=== PATIENT | female | born 1985 | race Caucasian/White ===

== ENCOUNTER 2020-04-04 04:26 | Outpatient (CLI) | payer MEDICAID ==
[2020-04-04 05:06] LABS: APPEARANCE,URINE CLEAR; BILIRUBIN,URINE NEGATIVE (NEGATIVE); COLOR,URINE YELLOW; GLUCOSE, URINE NEGATIVE (NEGATIVE); KETONES,URINE NEGATIVE (NEGATIVE); LEUKOCYTE ESTERASE,URINE NEGATIVE (NEGATIVE); NITRITE,URINE NEGATIVE (NEGATIVE); PROTEIN,URINE NEGATIVE (NEGATIVE); UROBILINOGEN,URINE NEGATIVE mg/dL (<2.0)
[2020-04-04 05:20] LABS: URINE AMPHETAMINES SCREEN NEGATIVE; URINE BARBITURATES SCREEN NEGATIVE; URINE BENZODIAZEPINES SCREEN NEGATIVE; URINE COCAINE SCREEN NEGATIVE; URINE MARIJUANA (THC) SCREEN NEGATIVE; URINE METHADONE SCREEN NEGATIVE; URINE PHENCYCLIDINE SCREEN NEGATIVE
== END 2020-04-04 05:35 | disposition home or self-care (01) ==
LOC: LC 04:26
PROVIDERS: ATTEND Obstetrics & Gynecology
DX: O46.92 Antepartum hemorrhage, unspecified, second trimester (principal); O26.892 Other specified pregnancy related conditions, second trimester; R10.2 Pelvic and perineal pain; Z3A.26 26 weeks gestation of pregnancy
CPT/HCPCS: 80307; 81001

== ENCOUNTER 2020-05-27 20:37 | Outpatient (CLI) | payer MEDICAID ==
[2020-05-27 21:11] LABS: APPEARANCE,URINE CLEAR; BILIRUBIN,URINE NEGATIVE (NEGATIVE); COLOR,URINE YELLOW; GLUCOSE, URINE NEGATIVE (NEGATIVE); KETONES,URINE NEGATIVE (NEGATIVE); LEUKOCYTE ESTERASE,URINE NEGATIVE (NEGATIVE); NITRITE,URINE NEGATIVE (NEGATIVE); PROTEIN,URINE NEGATIVE (NEGATIVE); URINE SPECIFIC GRAVITY 1.008; UROBILINOGEN,URINE NEGATIVE mg/dL (<2.0)
[2020-05-27] MEDS ORDERED: NORMAL SALINE 1000 ML 1,000 ML IV PRN (21:20)
[2020-05-27] MEDS ORDERED: ONDANSETRON HCL INJ/PF 4 MG/2 ML SDV IV ONE (21:29)
[2020-05-27 21:32] LABS: URINE AMPHETAMINES SCREEN NEGATIVE; URINE BARBITURATES SCREEN NEGATIVE; URINE BENZODIAZEPINES SCREEN NEGATIVE; URINE COCAINE SCREEN NEGATIVE; URINE MARIJUANA (THC) SCREEN NEGATIVE; URINE METHADONE SCREEN NEGATIVE; URINE PHENCYCLIDINE SCREEN NEGATIVE
[2020-05-27] MEDS ORDERED: ONDANSETRON HCL INJ/PF 4 MG/2 ML SDV ONE (21:32)
[2020-05-27 22:16] LABS: HEMATOCRIT 31.7 % (36.0-47.0); HEMOGLOBIN 10.5 g/dL (12.0-15.5); MEAN CORPUSCULAR HEMOGLOBIN 28.3 pg (27.0-33.4); MEAN CORPUSCULAR HGB CONC 33.1 g/dL (32.0-36.0); MEAN CORPUSCULAR VOLUME 86 fl (80-97); PLATELET COUNT 230 10^3/uL (150-450); RED BLOOD COUNT 3.71 10^6/uL (3.72-5.28); RED CELL DISTRIBUTION WIDTH 14.1 % (11.5-14.0); WHITE BLOOD COUNT 12.4 10^3/uL (4.0-10.5)
[2020-05-27 22:34] LABS: ALBUMIN 3.1 g/dL (3.5-5.0); ALKALINE PHOSPHATASE 137 U/L (38-126); AMYLASE 46 U/L (30-110); ANION GAP 8 (5-19); ASPARTATE AMINO TRANSFERASE 19 U/L (14-36); BILIRUBIN,TOTAL 0.3 mg/dL (0.2-1.3); BLOOD UREA NITROGEN 2 mg/dL (7-20); CALCIUM 8.8 mg/dL (8.4-10.2); CARBON DIOXIDE 19 mmol/L (22-30); CHLORIDE 107 mmol/L (98-107); GLUCOSE 112 mg/dL (75-110); POTASSIUM 3.3 mmol/L (3.6-5.0); TOTAL PROTEIN 6.3 g/dL (6.3-8.2)
[2020-05-27 22:42] LABS: ABSOLUTE LYMPHOCYTES# (MANUAL) 2.6 10^3/uL (0.5-4.7); ABSOLUTE MONOCYTES # (MANUAL) 0.9 10^3/uL (0.1-1.4); ANISOCYTOSIS SLIGHT; BASOPHILS % (MANUAL) 0 % (0-2); EOSINOPHILS % (MANUAL) 1 % (0-6); LYMPHOCYTES % (MANUAL) 21 % (13-45); METAMYELOCYTES % (MANUAL) 1 % (0-1); MONOCYTES % (MANUAL) 7 % (3-13); PLATELET COMMENT ADEQUATE; POLYCHROMASIA SLIGHT; SEGMENTED NEUTROPHILS % (MAN) 70 % (42-78); TOTAL CELLS COUNTED 100
[2020-05-27] MEDS ORDERED: HYDROXYZINE PAMOATE 50 MG CAPSULE ONE (23:03)
[2020-05-27] MEDS ORDERED: PANTOPRAZOLE SODIUM 40 MG TABLET.DR PO ONE (23:03)
--- NOTE | 2020-05-27 23:28 | Non Stress Test Report ---
Non Stress Test Datetime Report Generated by CPN: 05/27/2020 23:28 DEMOGRAPHIC Test Number: 1 EGA NST: 33.6 INDICATION Indication for Study (NST) Other: LC URINE RESULTS Urine Protein, NST: Negative Urine Ketones - NST: Negative Urine Glucose - NST: Negative Urine Blood - NST: Negative MONITORING Time on Monitor: 05/27/2020 23:00 Time off Monitor: 05/27/2020 23:26 NST Duration: 26 NST INTERVENTIONS NST Interventions: PO Hydration; IV Fluids NST Interventions Other: prolonged accels present in earlier portion of tracing, provider aware Physician Notified NST: Dr. Griffith BABY A: [id number] BABY A Movement : Present Contraction Frequency : none FHR Baseline : 150 Accelerations : 15X15 Decelerations : None Variability : Moderate 6-25bpm NST Review: Meets Criteria for Reactive NST NST Review and Verified By : Ousmane Sim RN NST Results: Reactive NST REPORT Report Trigger: Send Report
== END 2020-05-27 23:42 | disposition home or self-care (01) ==
LOC: LC 20:37
PROVIDERS: ATTEND Obstetrics & Gynecology
DX: O36.8330 Maternal care for abnormalities of the fetal heart rate or rhythm, third trimester, not applicable or unspecified (principal); O24.410 Gestational diabetes mellitus in pregnancy, diet controlled; O21.2 Late vomiting of pregnancy; Z3A.33 33 weeks gestation of pregnancy
CPT/HCPCS: 59025; 94760; 36415; 82962; 82150; 83690; 85025; 80053; 81001; 80307; J3490 ×2; J2405

== ENCOUNTER 2020-06-30 11:46 | Outpatient (CLI) | payer MEDICAID ==
[2020-06-30 12:27] LABS: APPEARANCE,URINE SLIGHTLY-CLOUDY; BILIRUBIN,URINE NEGATIVE (NEGATIVE); COLOR,URINE YELLOW; GLUCOSE, URINE NEGATIVE (NEGATIVE); KETONES,URINE NEGATIVE (NEGATIVE); LEUKOCYTE ESTERASE,URINE NEGATIVE (NEGATIVE); NITRITE,URINE NEGATIVE (NEGATIVE); PROTEIN,URINE 30 mg/dL (NEGATIVE); URINE SPECIFIC GRAVITY 1.012; UROBILINOGEN,URINE NEGATIVE mg/dL (<2.0)
--- NOTE | 2020-06-30 12:29 | Non Stress Test Report ---
Non Stress Test Datetime Report Generated by CPN: 06/30/2020 12:29 DEMOGRAPHIC Test Number: 1 EGA NST: 38.5 INDICATION Indication for Study (NST) Other: provider orders VITAL SIGNS Temperature - NST: 98.6 Pulse - NST: 102 RESP - NST: 17 NBPSYS NST: 113 NBPDIA NST: 58 MONITORING Monitor Explained: Monitor Explained; Test Explained; Patient Verbalized Understanding Time on Monitor: 06/30/2020 12:00 Time off Monitor: 06/30/2020 12:21 NST Duration: 21 NST INTERVENTIONS NST Interventions: PO Hydration Physician Notified NST: [id number] BABY A: [id number] BABY A Movement : Present Contraction Frequency : irregular FHR Baseline : 145 Accelerations : 15X15 Decelerations : None Variability : Moderate 6-25bpm NST Review: Meets Criteria for Reactive NST NST Review and Verified By : Adonis,RN NST Results: Reactive NST REPORT Report Trigger: Send Report
[2020-06-30 12:42] LABS: URINE AMPHETAMINES SCREEN NEGATIVE; URINE BARBITURATES SCREEN NEGATIVE; URINE BENZODIAZEPINES SCREEN NEGATIVE; URINE COCAINE SCREEN NEGATIVE; URINE MARIJUANA (THC) SCREEN NEGATIVE; URINE METHADONE SCREEN NEGATIVE; URINE PHENCYCLIDINE SCREEN NEGATIVE
== END 2020-06-30 12:28 | disposition home or self-care (01) ==
LOC: LC 11:46
PROVIDERS: ATTEND Obstetrics & Gynecology
DX: O47.1 False labor at or after 37 completed weeks of gestation (principal); Z3A.38 38 weeks gestation of pregnancy
CPT/HCPCS: 59025; 85025; 87635; 81005; 81001; 80307; C9803

== ENCOUNTER 2020-07-01 13:09 | Inpatient (IN) | payer MEDICAID ==
[2020-07-01 14:47] LABS: URINE AMPHETAMINES SCREEN NEGATIVE; URINE BARBITURATES SCREEN NEGATIVE; URINE BENZODIAZEPINES SCREEN NEGATIVE; URINE COCAINE SCREEN NEGATIVE; URINE MARIJUANA (THC) SCREEN NEGATIVE; URINE METHADONE SCREEN NEGATIVE; URINE PHENCYCLIDINE SCREEN NEGATIVE
[2020-07-01 15:04] LABS: BILIRUBIN,URINE NEGATIVE (NEGATIVE); GLUCOSE, URINE NEGATIVE (NEGATIVE); KETONES,URINE NEGATIVE (NEGATIVE); LEUKOCYTE ESTERASE,URINE NEGATIVE (NEGATIVE); NITRITE,URINE NEGATIVE (NEGATIVE); PROTEIN,URINE 100 mg/dL (NEGATIVE); URINE SPECIFIC GRAVITY 1.012; UROBILINOGEN,URINE NEGATIVE mg/dL (<2.0)
[2020-07-01 15:09] LABS: APPEARANCE,URINE TURBID; COLOR,URINE RED
[2020-07-01] MEDS ORDERED: PENICILLIN G POTASSIUM 5,000,000 UNIT in DEXTROSE 5%-WATER 100 ML IV ONE (15:52)
[2020-07-01] MEDS: RINGERS SOLUTION,LACTATED 1,000 ML IV PRN ×2 (16:07→21:12)
[2020-07-01] MEDS ORDERED: CEFAZOLIN SODIUM 2 GM in DEXTROSE 5%-WATER 50 ML IV PRN (16:15)
[2020-07-01] MEDS ORDERED: CEFAZOLIN 2 GM/D5W RTU 2 GM/50 ML RTUPB IV ONE (16:15)
[2020-07-01] MEDS ORDERED: CITRIC ACID/SODIUM CITRATE ORAL SOLN 15 ML UDCUP ONE (16:15)
[2020-07-01] MEDS ORDERED: CEFAZOLIN 2 GM/D5W RTU 2 GM/50 ML RTUPB IV PRN (16:16)
[2020-07-01] MEDS ORDERED: PENICILLIN G-K 5 MILLION UNIT VIAL ONE (16:16)
[2020-07-01 16:38] LABS: ABSOLUTE LYMPHOCYTES (AUTO) 1.2 10^3/uL (0.5-4.7); ABSOLUTE MONOCYTES (AUTO) 0.7 10^3/uL (0.1-1.4); ABSOLUTE NEUT (AUTO) 10.1 10^3/uL (1.7-8.2); BASOPHILS % (AUTO) 0.3 % (0-2); EOSINOPHILS % (AUTO) 0.3 % (0-6); HEMATOCRIT 31.5 % (36.0-47.0); HEMOGLOBIN 10.1 g/dL (12.0-15.5); LYMPHOCYTES % (AUTO) 10.3 % (13-45); MEAN CORPUSCULAR HEMOGLOBIN 25.2 pg (27.0-33.4); MEAN CORPUSCULAR HGB CONC 31.9 g/dL (32.0-36.0); MEAN CORPUSCULAR VOLUME 79 fl (80-97); MONOCYTES % (AUTO) 5.7 % (3-13); PLATELET COUNT 180 10^3/uL (150-450); RED BLOOD COUNT 3.99 10^6/uL (3.72-5.28); RED CELL DISTRIBUTION WIDTH 17.3 % (11.5-14.0); SEGMENTED NEUTROPHILS % (AUTO) 83.4 % (42-78); TOTAL CELLS COUNTED % (AUTO) 100 %; WHITE BLOOD COUNT 12.1 10^3/uL (4.0-10.5)
--- NOTE | 2020-07-01 16:45 | Admission Physical ---
Datetime Report Generated by CPN: 07/01/2020 16:45 CURRENT ADMISSION Chief Complaint: Uterine Contractions; Suspected Ruptured Membranes Indication for Induction: Not Applicable Admit Impression : Term, Intrauterine ; No Active Labor; Ruptured Membranes; Repeat Section Admit Plan: Admit to Unit; Initiate Section Protocol ALLERGIES Medication Allergies: No Medication Allergies: No Known Allergies (07/01/2020) Latex: No Latex Allergies Food Allergies: NKA Environmental Allergies: NKA OBSTETRICAL HISTORY EDC: 07/09/2020 00:00 : 9 Para: 2 Term: 1 : 2 SAB: 3 IAB: 3 Ectopic: 0 Livin Cesareans: 1 VBACs: 0 Multiple Births: 1 Gestational Diabetes: Yes Rh Sensitization: No Incompetent Cervix: No PRICE: No Infertility: No ART Treatment: No Uterine Anomaly: No IUGR: No Hx Previous C/S: Yes Macrosomia: Yes Hx Loss/Stillborn: No PIH: No Hx : No Placenta Previa/Abruption: No Depression/PP Depression: No PTL/PROM: Yes Post Hemorrhage: Yes Current Procedures: Ultrasound; NST SEE RECORDS Alcohol: No Marijuana : No Cocaine: No Other Illicit Drugs: No MEDICAL HISTORY Diabetes: No Blood Transfusion: No Pulmonary Disease (Asthma, TB): No Breast Disease: No Hypertension: No State'S Attorney Surgery: No Heart Disease: No Hosp/Surgery: No Autoimmune Disorder: No Anesthetic Complications: No Kidney Disease: No Abnormal Pap Smear: No Neuro/Epilepsy: No Psychiatric Disorders: No Other Medical Diseases: No Hepatitis/Liver Disease: No Significant Family History: No Varicosities/Phlebitis: No Trauma/Violence : No Thyroid Dysfunction: No INFECTIOUS HISTORY Gonorrhea: No Genital Herpes: No Chlamydia: No Tuberculosis: No Syphilis: No Hepatitis: No HIV/AIDS Exposure: No Rash or Viral Illness: No HPV: No PHYSICAL EXAM General: Normal HEENT: Normal Neurologic: Normal Thyroid: Deferred Heart: Normal Lungs: Normal Breast: Deferred Back: Normal Abdomen: Normal Genitourinary Exam: Normal Extremities: Normal DTRs: Normal Pelvic Type: Adequate Vital Signs: Reviewed VAGINAL EXAM Dilatation: 2 Effacement: 50 Station: -3 Contraction Comments: q 4-5 MEMBRANES Membranes: Ruptured Amniotic Fluid Color: Bloody FETUS A EGA: 38.6 Monitoring: External US FHR- Baseline: 145 Variability: Moderate 6-25bpm Accelerations: 15X15 Decelerations: None Presentation: Vertex Admit Comment: 35yo at 38+6ega presents with regular uterine contractions and noted to SROm with with positive actimprom on exam. H/o twin vaginal delivery then Primary cesaren section due to NRFHTs and GDM that . h/o EAB x 3 and h/o SAB. also complicated by Anti Big E. GDM on insulin. Anterior low lying placenta resolved. reviewed with patient that baby is approximately 9# and she desires to proceed with Repeat section and desires BTL. She is 100% sure that she has completed childbearing. PLANS FOR LABOR AND DELIVERY Labor and Delivery: None Pain Management: Spinal Feeding Preference: Breast Benefit of Breast Feed Discussed: Yes Circumcision: Yes INFORMED CONSENT Informed Consent Obtained: Section Delivery; Sterilization; Risks, Benefits and Alternatives Discussed Signature: with User ID: [email or web address]
[2020-07-01] MEDS ORDERED: KETOROLAC TROMETHAMINE INJ/PF 30 MG/1 ML SDV ONE (17:14)
[2020-07-01] MEDS ORDERED: OXYTOCIN 10 UNIT/ML VIAL ONE (17:14)
[2020-07-01] MEDS ORDERED: ACETAMINOPHEN 1,000 MG/100 ML RTUPB IV ONE (17:15)
[2020-07-01] MEDS ORDERED: MIDAZOLAM 2 MG/2 ML INJ ONE (17:15)
[2020-07-01] MEDS ORDERED: FENTANYL CITRATE INJ/PF 100 MCG/2 ML AMPUL ONE (17:15)
[2020-07-01] MEDS ORDERED: ONDANSETRON HCL INJ/PF 4 MG/2 ML SDV ONE (17:15)
[2020-07-01] MEDS ORDERED: OXYTOCIN/0.9 % SODIUM CHLORIDE 30 UNIT/500 ML RTUINJ ONE (17:15)
[2020-07-01] MEDS ORDERED: BUPIVACAINE HCL 0.25 % INJ/PF (2.5 MG/1 ML) 30 ML VIAL ONE (17:16)
--- NOTE | 2020-07-01 17:26 | Operative Report ---
Operative Report DATE OF SURGERY: 07/01/20 PREOPERATIVE DIAGNOSIS: , h/o with Twins, h/o C/S for NRFHTs, undesi red fertility, Hypertrophic scar, SROM prior to onset of labor. A2GDM POSTOPERATIVE DIAGNOSIS: CLAUDIA- delivered, macrosomia OPERATION: Repeat section, Scar revision, Tubal sterilization SURGEON: DARIUS LEDBETTER ANESTHESIA: Spinal TISSUE REMOVED OR ALTERED: placenta and cord sent to pathology COMPLICATIONS: mild uterine atony. ESTIMATED BLOOD LOSS: 600 QUANTITATIVE BLOOD LOSS: 870 INTRAOPERATIVE FINDINGS: VMI delivered at 1745, weight 10#3oz, IVF 1200ml, UOP 200ml. Apgars 8/9 , normal bilateral tubes and ovaries. Of note no incision needed to be made as lower uterine segment was so thin opened with hemostat. PROCEDURE: Anesthesia provider: [Perez Witt CRNA, Dr. Mora] Urine output: [200ml] IV fluids: [1200ml] Indications: [35yo with history of with Twins then history of C/S for NRFHTs and undesired fertility. She has a hypertrophic scar. She presents with regular uterine contractions and then SROM shortly after arrival. She has A2GDM and las EFW was 8#13oz. She was counseled and desires to proceed with planned Repeat section with BTL. The risks, benefits, alternatives were reviewed and she desires to proceed.] Procedure: The patient was taken to the operating room where spinal anesthesia was obtained and found to be adequate. She was then prepped and draped in the normal sterile fashion and placed in the dorsal supine position with a leftward tilt. The prior Pfannenstiel skin incision was excised and then carried through to the underlying layers of the fascia with the scalpel. The fascia was incised in the midline and the incision extended laterally with the Ibarra scissors. The superior aspect of the fascial incision was then grasped with Carmine clamps elevated and the underlying rectus muscles dissected off [bluntly]. Attention was then turned to the inferior aspect of the fascial incision which in a similar fashion was grasped, tented up with Carmine clamps, and the rectus muscles dissected off [bluntly]. The rectus muscles were then in the midline and the peritoneum at the amount identified and entered [bluntly]. The peritoneal incision was then extended superiorly and inferiorly with good visualization of the bladder. The bladder blade was inserted and the vesicouterine peritoneum identified grasped with [place] pickups and entered sharply with the Metzenbaum scissors. This incision was then extended laterally with the Metzenbaum scissors and a bladder flap created digitally. The bladder blade was then reinserted and the lower uterine segment entered with hemostat due to very thin and noticeable underlying placenta. The uterine incision was then extended bluntly. The bladder blade was removed and the infant's head was delivered from cephalic presentation atraumatically. The nose and mouth were suctioned and the cord doubly clamped and cut. And the was handed off to waiting pediatricians. The placenta was then delivered spontaneously and the uterus exteriorized and cleared of all clots and debris. The uterine incision was then repaired with 1- 0 Vicryl in a running locked fashion. A second layer of the same suture was used to obtain hemostasis via imbrication of the initial layer. The bladder flap was then repaired with 3-0 chromic in a running fashion. Filshie clip was placed on bilateral ampullary portion of the fallopian tubes thus completing bilateral tubal occlusion. The uterus was returned to the patient's abdomen and Interceed was placed overlying the uterine incision to prevent adhesions. The gutters were cleared of all clots and debris. All operative sites were noted to be hemostatic. The fascia was reapproximated with 0 Vicryl in a running fashion from each lateral edge to the midline. The skin was closed with 3-0 Monocryl in a running subcuticular fashion with overlying Dermabond for additional dressing as well as wound closure. The patient tolerated the procedure well. Sponge lap needle and instrument counts are correct times 2. 2 g of Ancef were given prior to skin incision. Loading dose of PCN was given at diagnosis of SROM. The patient was taken to the recovery area awake and in stable condition.
[2020-07-01] MEDS ORDERED: PENICILLIN G POTASSIUM 2,500,000 UNIT in DEXTROSE 5%-WATER 50 ML IV SCH (19:53)
--- NOTE | 2020-07-01 21:25 | Birth Certificate Data ---
Cert Data Datetime Report Generated by CPN: 07/01/2020 21:25 CERTIFICATE DATA 47a. Care: Yes (04/04/2020 04:43:Leandro Santana RN) 47b. Date of First Visit: 02/02/2020 00:00 (04/04/2020 04:43:Leandro Santana RN) 47c. Date of Last Visit: 06/29/2020 00:00 (04/04/2020 04:43:Leandro Santana RN) 47d. Number of Visits: 13 (04/04/2020 04:43:Leandro Santana RN) 48a. Number of Prev Live Births: 3 (04/04/2020 04:43:Leandro Santana RN) 48b. Now Livin (04/04/2020 04:43:Marily Cruz RN) 48c. Live Births Now : 0 (04/04/2020 04:43:QS system process) 48e. Losses: 6 (04/04/2020 04:43:Leandro Santana RN) RISK FACTORS IN THIS 49a. Diabetes: No (04/04/2020 04:43:Leandro Santana RN) Type of Diabetes: Gestational Diabetes (04/04/2020 04:43:Leandro Santana RN) 49b. Hypertension: No (04/04/2020 04:43:Leandro Santana RN) 49c. Previous Births: 2 (04/04/2020 04:43:Marily Cruz RN) 49d. Stillborns: Yes (04/04/2020 04:43:Leandro Santana RN) 49d. IUGR: No (04/04/2020 04:43:Leandro Santana RN) 49e. Infertility Treatment: No (04/04/2020 04:43:Leandro Santana RN) 49f. Previous Cesareans: 1 (04/04/2020 04:41:GRADY Duff) Mother's Height 50b. Height Inches: 69 (07/01/2020 20:54:QS system process) Mother's Weight 51a. Pre- Weight (lbs): 192 (04/04/2020 04:43:Leandro Santana RN) 51b. Weight at Delivery (lbs): 251 (07/01/2020 20:54:QS system process) Infections Present/Treated 53a. Gonorrhea: No (04/04/2020 04:43:Leandro Santana RN) Results this Hospital Visit : Negative (04/04/2020 04:43:Marily Cruz RN) 53b. Syphilis: No (04/04/2020 04:43:Leandro Santana RN) 53c. Chlamydia: Yes (04/04/2020 04:43:Leandro Santana RN) Results this Hospital Visit: Negative (04/04/2020 04:43:Marily Cruz RN) 53d. Hepatitis B: No (04/04/2020 04:43:Leandro Santana RN) Results this Hospital Visit: Negative (04/04/2020 04:43:Marily Cruz RN) 53j. Test Result: Negative (04/04/2020 04:43:Marily Cruz RN) Obstetric Procedures 54a, b, c. Obstetric Procedures: Ultrasound; NST (04/04/2020 04:43:Leandro Santana RN) Cigarette Smoking 55a. 3 Months Before Preg - Ci (04/04/2020 04:43:Leandro Santana RN) 55a. Packs: 1 (04/04/2020 04:43:Leandro Santana RN) 55b. 1st Trimester of Preg- Ci (04/04/2020 04:43:Leandro Santana RN) 55b. Packs: 0 (04/04/2020 04:43:Leandro Santana RN) 55c. 2nd Trimester of Preg- Ci (04/04/2020 04:43:Leandro Santana RN) 55c. Packs: 0 (04/04/2020 04:43:Leandro Santana RN) 55d. 3rd Trimester of Preg- Ci (04/04/2020 04:43:Leandro Santana RN) 55d. Packs: 0 (04/04/2020 04:43:Leandro Santana RN) Onset of Labor 56a. PROM >12 Hrs: 2.58 (04/04/2020 04:43:QS system process) 57a. Induction of Labor: N/A (04/04/2020 04:43:Leandro Santana RN) 57c. Non-Vertex Presentation A: Vertex (04/04/2020 04:43:Leandro Santana RN) 57d. Steroids - Lung Mat: None (04/04/2020 04:43:Leandro Santana RN) 57d. Steroids - Lung Mat: Not Applicable (04/04/2020 04:43:Leandro Santana RN) 57e. Antibiotics During Labor: 07/01/2020 17:13 (04/04/2020 04:43:Leandro Santana RN) 57g. Moderate/Heavy Meconium: Clear (07/01/2020 15:10:Leandro Santana RN) 57h. Intolerance of Labor: Repeat Elective (04/04/2020 04:43:Leandro Santana RN) : Repeat Elective (04/04/2020 04:43:Leandro Santana RN) 57i. Epidural/Spinal Anesthesia: Intrathecal (04/04/2020 04:43:Leandro Santana RN) Method of Delivery 58a. Forceps - Unsuccessful A: N/A (04/04/2020 04:43:Leandro Santana RN) 58b. Vacuum - Unsuccessful A: N/A (04/04/2020 04:43:Leandro Santana RN) 58c. Presentation at 58c. Presentation at - A : Vertex (04/04/2020 04:43:Leandro Santana RN) 58c. Presentation at - A : N/A (04/04/2020 04:43:Leandro Santana RN) 58c. Presentation at - A : Cephalic (04/04/2020 04:43:Ez Morris, OBSERVATION NURSE) Final Route and Method of Del 58d. Baby A Route/Delivery: (04/04/2020 04:43:Darlin Sierra RN) 58e. Trial of Labor Attempted: No (04/04/2020 04:43:Leandro Santana RN) 58e. Trial of Labor Attempted A: N/A (04/04/2020 04:43:Leandro Santana RN) 58e. Trial of Labor Attempted B: Successful (04/04/2020 04:43:Leandro Santana RN) Maternal Morbidity 59b. 3rd or 4th Degree Lacs: None (04/04/2020 04:43:Leandro Santana RN) Birthweight Baby A: 4630 (04/04/2020 04:43:Darlin Sierra RN) 60a. Pounds : 10 (04/04/2020 04:43:QS system process) 60b. Ounces: 3 (04/04/2020 04:43:QS system process) 61. GA at Delivery Baby A: 38.6 (04/04/2020 04:43:Ez A. Arturo, OBSERVATION NURSE) : Early Term- 37- 38.6 Weeks (04/04/2020 04:43:QS system process) 62a. 5 Minute Baby A: 9 (04/04/2020 04:43:QS system process)
--- NOTE | 2020-07-01 21:25 | Delivery Summary ---
Del Sum A-C Datetime Report Generated by CPN: 07/01/2020 21:25 DELIVERY PERSONNEL DELIVERY PERSONNEL: [id number] Delivery Doctor:: Cherise Mcgill MD Anesthesiologist:: Dr. Mora BEEKEEPER:: Perez Witt CRNA [place] Tier:: Leandro Santana RN Neonatal Nurse Practitioner:: CELIA Campos Nursery Nurse:: Darlin Sierra RN Lead Bi Developer/SENIOR EMBEDDED SOFTWARE ENGINEER: ST Gaby Lead Bi Developer/SENIOR EMBEDDED SOFTWARE ENGINEER: Ida Boyer RN MATERNAL INFORMATION Delivery Anesthesia: Spinal Medications After Delivery: Pitocin 30 Units in 500ml NS/D5W Delivery QBL: 870 Maternal Complications: None LABOR SUMMARY EDC: 07/09/2020 00:00 No. Babies in Womb: 1 Attempted: No Labor Anesthesia: Intrathecal LABOR INFORMATION Reason for Induction: Not Applicable Oxytocin: N/A Group B Beta Strep: Positve Antibiotics # of Doses: 2 Antibiotics Time of Last Dose: 07/01/2020 17:13 Name of Antibiotic Given: Penicillin/Ancef Steroids Given: None Reason Steroids Not Administered: Not Applicable MEMBRANES Membranes Rupture Method: Spontaneous Rupture of Membranes: 07/01/2020 15:10 Length of Rupture (hr): 2.58 Amniotic Fluid Color: Clear Amniotic Fluid Amount: Moderate Amniotic Fluid Odor: Normal STAGES OF LABOR Stage 3 hr: 0 Stage 3 min: 1 VAGINAL DELIVERY Episiotomy: None Laceration #1: None Laceration Extension #1: N/A Sponge Count Correct: N/A Sharps Count Correct: N/A CSECTION DELIVERY Primary Indication: Repeat Elective Secondary Indication: Repeat Elective CSection Urgency: Non-Scheduled CSection Incidence: Repeat Labor: N/A Elective: N/A CSection Incision: Lower Uterine Transverse Other Sterilization Procedure: Filshie clip BABY A INFORMATION Infant Delivery Date/Time: 07/01/2020 17:45 Method of Delivery: Nurse Controlled Delivery: No Born in Route : No : N/A Forceps: N/A Vacuum Extraction: N/A Shoulder Dystocia : No PRESENTATION/POSITION BABY A Presentation: Cephalic Cephalic Presentation: Vertex Breech Presentation: N/A PLACENTA INFORMATION BABY A Placenta Delivery Time : 07/01/2020 17:46 Placenta Method of Delivery: Manual Removal Placenta Status: Delivered SCORES BABY A Heart Rate 1 min: >100 bpm Resp Effort 1 min: Good Cry Reflex Irritability 1 min: Cough or Sneeze or Pulls Away Muscle Tone 1 min: Active Motion Color 1 min: Blue/Pale Resuscitation Effort 1 min: Tactile Stimulation SCORE 1 MIN: 8 Heart Rate 5 min: >100 bpm Resp Effort 5 min: Good Cry Reflex Irritability 5 min: Cough or Sneeze or Pulls Away Muscle Tone 5 min: Active Motion Color 5 min: Body Girard, Extremities Blue Resuscitation Effort 5 min: Tactile Stimulation SCORE 5 MIN: 9 INFORMATION BABY A Gestational Age at Delivery: 38.6 Gestational Status: Early Term- 37- 38.6 Weeks Infant Outcome : Liveborn Condition : Stable Sex: Male IDENTIFICATION BABY A Verification Date/Time: 07/01/2020 17:45 ID Band Number: [id number] Mother's Name Verified: Yes RN Verifying Infant: Leandro Santana RN Additional Verifying Personnel: Darlinmay Siddiqiobdulio RN WEIGHT/LENGTH BABY A Birthweight (gm): 4630 Infant Weight (lb): 10 Infant Weight (oz): 3 Length (in): 20.00 Infant Length (cm): 50.80 CORD INFORMATION BABY A No. Cord Vessels: 3 Nuchal Cord : N/A Cord Blood Taken: Yes-For Eval (Mom's Blood Type - or O+) Suction: Mouth; Nose ASSESSMENT BABY A Infant Complications: None Physical Findings at Delivery: Other Physical Findings- Other: see initial nursery assessment Skin to Skin: Yes Skin to Skin Time (min): 5 Transferred To: [facility] BABY B INFORMATION : Successful
[2020-07-01] MEDS ORDERED: SIMETHICONE 80 MG TAB.CHEW PO PRN (22:13)
[2020-07-01] MEDS ORDERED: ACETAMINOPHEN 325 MG TABLET PO PRN (22:13)
[2020-07-01] MEDS ORDERED: HYDROMORPHONE HCL INJ/PF 2 MG/ML AMPULE IV PRN (22:13)
[2020-07-01] MEDS ORDERED: RINGERS SOLUTION,LACTATED 1,000 ML IV PRN (22:13)
[2020-07-01] MEDS ORDERED: OXYTOCIN/0.9 % SODIUM CHLORIDE 30 UNIT/500 ML RTUINJ IV PRN (22:13)
[2020-07-01] MEDS ORDERED: MEASLES,MUMPS&RUBELLA VACC/PF 0.5 ML VIAL SUBCUT PRN (22:13)
[2020-07-01] MEDS ORDERED: DIPH/PERTUSS(ACELL)/TETANUS VAC/PF 0.5 ML SYR (>=10YO) IM PRN (22:13)
[2020-07-01] MEDS ORDERED: OXYCODONE-ACETAMINOPHEN 5-325 MG TABLET PO PRN (22:13)
[2020-07-01] MEDS ORDERED: PROMETHAZINE HCL INJ 25 MG/1 ML VIAL IV PRN (22:13)
[2020-07-01] MEDS ORDERED: HYDROMORPHONE HCL INJ/PF 2 MG/ML AMPULE ONE (22:28)
[2020-07-02] MEDS: OXYCODONE-ACETAMINOPHEN 5-325 MG TABLET PO PRN ×4 (03:21→18:52)
[2020-07-02 07:48] LABS: HEMATOCRIT 24.8 % (36.0-47.0); MEAN CORPUSCULAR HEMOGLOBIN 25.4 pg (27.0-33.4); MEAN CORPUSCULAR VOLUME 80 fl (80-97); PLATELET COUNT 144 10^3/uL (150-450); RED BLOOD COUNT 3.11 10^6/uL (3.72-5.28); RED CELL DISTRIBUTION WIDTH 17.3 % (11.5-14.0); WHITE BLOOD COUNT 12.3 10^3/uL (4.0-10.5)
[2020-07-02 08:25] LABS: HEMOGLOBIN 7.9 g/dL (12.0-15.5)
[2020-07-02] MEDS ORDERED: NORMAL SALINE 250 ML IV PRN ×2 (08:41)
[2020-07-02] MEDS: PRENATAL VITAMIN W DHA CAPSULE PO SCH (09:35)
[2020-07-02] MEDS: DOCUSATE SODIUM 100 MG CAPSULE PO SCH ×2 (09:35→18:51)
[2020-07-02] MEDS ORDERED: IBUPROFEN 800 MG TABLET ONE (12:27)
[2020-07-02] MEDS: IBUPROFEN 800 MG TABLET PO SCH ×2 (12:40→18:52)
--- NOTE | 2020-07-02 12:46 | PDOC PROGRESS REPORT ---
Subjective-OB Progress Note for:: 07/02/20 Subjective: reports bleeding slowing, pain controlled with current meds. denies needs Physical Exam (OB) Vital Signs: Temp Pulse Resp BP Pulse Ox 97.8 F 96 18 119/69 99 07/02/20 12:34 07/02/20 12:34 07/02/20 12:34 07/02/20 12:34 07/02/20 12:34 Intake & Output 07/01/20 07/02/20 07/03/20 06:59 06:59 06:59 Intake Total 1405 0 Output Total 1350 800 Balance 55 -800 Weight 113.9 kg - Dressing Removed: No Incision: Well Approximated Closure Type: Surgical Glue - Maternal Morbidity 59. Maternal Morbidity (serious complications experinced by the mother associated with labor and delivery: Maternal transfusion - Abdomen Description: Tender, Soft, Round Fundal Description: Firm, Midline Fundal Height: u/u - u/2 - Abdominal Distension: No distension - Extremities Lower extremities: Patricio's sign - neg Objective-Diagnostic Laboratory: 07/02/20 07:25 07/01/20 07/01/20 07/01/20 13:45 16:12 16:12 WBC 12.1 H RBC 3.99 Hgb 10.1 L Hct 31.5 L MCV 79 L MCH 25.2 L MCHC 31.9 L RDW 17.3 H Plt Count 180 Seg Neutrophils % 83.4 H Urine Color RED Urine Appearance TURBID Urine pH 7.0 Ur Specific [place] 1.012 Urine Protein 100 H Urine Glucose (UA) NEGATIVE Urine Ketones NEGATIVE Urine Blood MODERATE H Urine Nitrite NEGATIVE Ur Leukocyte Esterase NEGATIVE Blood Type O POSITIVE Antibody Screen POSITIVE 07/02/20 07:25 WBC 12.3 H RBC 3.11 L Hgb 7.9 L D Hct 24.8 L MCV 80 MCH 25.4 L MCHC 32.0 RDW 17.3 H Plt Count 144 L Seg Neutrophils % Urine Color Urine Appearance Urine pH Ur Specific [place] Urine Protein Urine Glucose (UA) Urine Ketones Urine Blood Urine Nitrite Ur Leukocyte Esterase Blood Type Antibody Screen Assessment and Plan(PN) - Time Spent with Patient Time with patient: Less than 15 minutes - Disposition Anticipated Discharge Disposition: Home, Self Care Anticipated Discharge Timeframe: within 48 hours
[2020-07-02 17:29] LABS: HEMOGLOBIN 8.7 g/dL (12.0-15.5); MEAN CORPUSCULAR HGB CONC 32.3 g/dL (32.0-36.0); MEAN CORPUSCULAR VOLUME 81 fl (80-97); PLATELET COUNT 158 10^3/uL (150-450); RED BLOOD COUNT 3.36 10^6/uL (3.72-5.28); RED CELL DISTRIBUTION WIDTH 17.4 % (11.5-14.0); WHITE BLOOD COUNT 12.3 10^3/uL (4.0-10.5)
[2020-07-03] MEDS: IBUPROFEN 800 MG TABLET PO SCH ×4 (00:10→18:16)
[2020-07-03] MEDS: OXYCODONE-ACETAMINOPHEN 5-325 MG TABLET PO PRN ×3 (02:10→18:18)
[2020-07-03 06:28] LABS: HEMATOCRIT 28.8 % (36.0-47.0); HEMOGLOBIN 9.3 g/dL (12.0-15.5); MEAN CORPUSCULAR HEMOGLOBIN 25.9 pg (27.0-33.4); MEAN CORPUSCULAR HGB CONC 32.3 g/dL (32.0-36.0); MEAN CORPUSCULAR VOLUME 80 fl (80-97); PLATELET COUNT 201 10^3/uL (150-450); RED BLOOD COUNT 3.59 10^6/uL (3.72-5.28); RED CELL DISTRIBUTION WIDTH 17.6 % (11.5-14.0); WHITE BLOOD COUNT 14.3 10^3/uL (4.0-10.5)
[2020-07-03 08:10] LABS: ABSOLUTE LYMPHOCYTES# (MANUAL) 2.6 10^3/uL (0.5-4.7); ABSOLUTE MONOCYTES # (MANUAL) 0.9 10^3/uL (0.1-1.4); BAND NEUTROPHILS % (MANUAL) 2 % (3-5); BASOPHILS % (MANUAL) 1 % (0-2); EOSINOPHILS % (MANUAL) 0 % (0-6); LYMPHOCYTES % (MANUAL) 18 % (13-45); MONOCYTES % (MANUAL) 6 % (3-13); NUCLEATED RED BLOOD CELLS 1 /100 WBC (0); SEGMENTED NEUTROPHILS % (MAN) 73 % (42-78); TOTAL CELLS COUNTED 100
[2020-07-03 08:11] LABS: ANISOCYTOSIS 1+; HYPOCHROMASIA SLIGHT; PLATELET CLUMPS PRESENT; PLATELET COMMENT ADEQUATE
[2020-07-03] MEDS: DOCUSATE SODIUM 100 MG CAPSULE PO SCH ×2 (09:42→18:16)
[2020-07-03] MEDS: PRENATAL VITAMIN W DHA CAPSULE PO SCH (09:42)
--- NOTE | 2020-07-03 11:57 | PDOC PROGRESS REPORT ---
Subjective-OB Progress Note for:: 07/03/20 Subjective: reports bleeding slowing, pain controlled with current meds. crying, baby has high bili. hx PPD and asking to go back on paxil-ordered Physical Exam (OB) Vital Signs: Temp Pulse Resp BP Pulse Ox 97.5 F 94 18 134/74 H 98 07/03/20 11:03 07/03/20 11:03 07/03/20 11:03 07/03/20 11:03 07/03/20 11:03 Intake & Output 07/02/20 07/03/20 07/04/20 06:59 06:59 06:59 Intake Total 1405 300 Output Total 1350 2300 Balance 55 -2000 Weight 113.9 kg - Dressing Removed: No Incision: Well Approximated Closure Type: Surgical Glue - Maternal Morbidity 59. Maternal Morbidity (serious complications experinced by the mother associated with labor and delivery: Maternal transfusion - Abdomen Description: Tender, Soft Hernia Present: No Fundal Description: Firm, Midline Fundal Height: u/u - u/2 - Abdominal Distension: No distension - Extremities Lower extremities: Patricio's sign - neg Calf: Normal, Nontender Objective-Diagnostic Laboratory: 07/03/20 05:48 07/01/20 07/02/20 07/03/20 16:12 17:00 05:48 WBC 12.3 H 14.3 H RBC 3.36 L 3.59 L Hgb 8.7 L 9.3 L Hct 27.0 L 28.8 L MCV 81 80 MCH 26.0 L 25.9 L MCHC 32.3 32.3 RDW 17.4 H 17.6 H Plt Count 158 201 Seg Neutrophils % Not Reportable Blood Type O POSITIVE Antibody Screen POSITIVE Assessment and Plan(PN) - Time Spent with Patient Time with patient: Less than 15 minutes Medications reviewed and adjusted accordingly: Yes - Disposition Anticipated Discharge Disposition: Home, Self Care Anticipated Discharge Timeframe: within 24 hours
[2020-07-03] MEDS: PAROXETINE HCL 20 MG TABLET PO SCH (13:14)
[2020-07-04] MEDS: IBUPROFEN 800 MG TABLET PO SCH ×3 (00:55→11:39)
[2020-07-04] MEDS: OXYCODONE-ACETAMINOPHEN 5-325 MG TABLET PO PRN ×3 (04:26→13:43)
[2020-07-04] MEDS: PAROXETINE HCL 20 MG TABLET PO SCH (09:16)
[2020-07-04] MEDS: DOCUSATE SODIUM 100 MG CAPSULE PO SCH (09:16)
[2020-07-04] MEDS: PRENATAL VITAMIN W DHA CAPSULE PO SCH (09:16)
--- NOTE | 2020-07-04 09:46 | PDOC DISCHARGE SUMMARY ---
Impression - Admit/DC Date/PCP Admission Date/Primary Care Provider: 07/01/20 15:50 INDIGO TORRES MD Discharge Date: 07/04/20 - POD #3, doing well, , no complaints, UOB, voiding, O+, rubella immune, - Discharge Diagnosis (1) S/P repeat low transverse Is this a current diagnosis for this admission?: Yes (2) Spontaneous rupture of amniotic membranes Is this a current diagnosis for this admission?: Yes (3) Sterilization Is this a current diagnosis for this admission?: Yes (4) Gastroesophageal reflux disease Is this a current diagnosis for this admission?: Yes (5) Gestational diabetes mellitus (GDM) affecting Is this a current diagnosis for this admission?: Yes (6) Nausea and vomiting during Is this a current diagnosis for this admission?: Yes (7) Blood transfusion during current hospitalization Is this a current diagnosis for this admission?: Yes - Additional Information Resuscitation Status: Full Code Discharge Diet: As Tolerated, Regular Discharge Activity: Activity As Tolerated, No Driving, No Lifting Over 10 Pounds, Pelvic Rest Referrals: INDIGO TORRES MD [Primary Care Provider] - Prescriptions: Ibuprofen [Motrin 800 mg Tablet] 800 mg PO Q6 #60 tablet Oxycodone HCl/Acetaminophen [Percocet 5-325 mg Tablet] 1 tab PO Q4HP PRN 30 Days #30 tablet PRN Reason: Pain Scale Of 4 Home Medications: Prenat 115/Iron Fum/Folic/Dss [ 19 Tablet] 1 each PO DAILY 04/04/20 Pantoprazole Sodium [Protonix] 40 mg PO DAILY #30 tablet. 05/27/20 Ibuprofen [Motrin 800 mg Tablet] 800 mg PO Q6 #60 tablet 07/04/20 Oxycodone HCl/Acetaminophen [Percocet 5-325 mg Tablet] 1 tab PO Q4HP PRN 30 Days #30 tablet 07/04/20 HPI Reason(s) for Admission: Ceasarean Section-Repeat, Gestional Diabetes Intrapartum Procedure(s): Tubal Ligation Hospital Course 59. Maternal Morbidity (serious complications experinced by the mother associated with labor and delivery: Maternal transfusion Results Laboratory Results: WBC 14.3 10^3/uL (4.0-10.5) H 07/03/20 05:48 RBC 3.59 10^6/uL (3.72-5.28) L 07/03/20 05:48 Hgb 9.3 g/dL (12.0-15.5) L 07/03/20 05:48 Hct 28.8 % (36.0-47.0) L 07/03/20 05:48 MCV 80 fl (80-97) 07/03/20 05:48 MCH 25.9 pg (27.0-33.4) L 07/03/20 05:48 MCHC 32.3 g/dL (32.0-36.0) 07/03/20 05:48 RDW 17.6 % (11.5-14.0) H 07/03/20 05:48 Plt Count 201 10^3/uL (150-450) 07/03/20 05:48 Lymph % (Auto) Not Reportable 07/03/20 05:48 [place] % (Auto) Not Reportable 07/03/20 05:48 Eos % (Auto) Not Reportable 07/03/20 05:48 Baso % (Auto) Not Reportable 07/03/20 05:48 Absolute Neuts (auto) Not Reportable 07/03/20 05:48 Absolute Lymphs (auto) Not Reportable 07/03/20 05:48 Absolute Monos (auto) Not Reportable 07/03/20 05:48 Absolute Eos (auto) Not Reportable 07/03/20 05:48 Absolute Basos (auto) Not Reportable 07/03/20 05:48 Total Counted 100 07/03/20 05:48 Seg Neutrophils % Not Reportable 07/03/20 05:48 Seg Neuts % (Manual) 73 % (42-78) 07/03/20 05:48 Band Neutrophils % 2 % (3-5) L 07/03/20 05:48 Lymphocytes % (Manual) 18 % (13-45) 07/03/20 05:48 Monocytes % (Manual) 6 % (3-13) 07/03/20 05:48 Eosinophils % (Manual) 0 % (0-6) 07/03/20 05:48 Basophils % (Manual) 1 % (0-2) 07/03/20 05:48 Abs Neuts (Manual) 10.7 10^3/uL (1.7-8.2) H 07/03/20 05:48 Abs Lymphs (Manual) 2.6 10^3/uL (0.5-4.7) 07/03/20 05:48 Abs Monocytes (Manual) 0.9 10^3/uL (0.1-1.4) 07/03/20 05:48 Absolute Eos (Manual) 0.0 10^3/uL (0.0-0.6) 07/03/20 05:48 Abs Basophils (Manual) 0.1 10^3/uL (0.0-0.2) 07/03/20 05:48 Nucleated RBCs 1 /100 WBC (0) 07/03/20 05:48 Clumped Platelets PRESENT 07/03/20 05:48 Platelet Comment ADEQUATE 07/03/20 05:48 Hypochromasia SLIGHT 07/03/20 05:48 Anisocytosis 1+ 07/03/20 05:48 Microcytosis SLIGHT 07/03/20 05:48 Urine Color RED 07/01/20 13:45 Urine Appearance TURBID 07/01/20 13:45 Urine pH 7.0 (5.0-9.0) 07/01/20 13:45 Ur Specific [place] 1.012 07/01/20 13:45 Urine Protein 100 mg/dL (NEGATIVE) H 07/01/20 13:45 Urine Glucose (UA) NEGATIVE mg/dL (NEGATIVE) 07/01/20 13:45 Urine Ketones NEGATIVE mg/dL (NEGATIVE) 07/01/20 13:45 Urine Blood MODERATE (NEGATIVE) H 07/01/20 13:45 Urine Nitrite NEGATIVE (NEGATIVE) 07/01/20 13:45 Urine Bilirubin NEGATIVE (NEGATIVE) 07/01/20 13:45 Urine Urobilinogen NEGATIVE mg/dL (<2.0) 07/01/20 13:45 Ur Leukocyte Esterase NEGATIVE (NEGATIVE) 07/01/20 13:45 Urine Ascorbic Acid NEGATIVE (NEGATIVE) 07/01/20 13:45 Membranes Rupture POSITIVE (NEGATIVE) H 07/01/20 15:23 Urine Opiates Screen NEGATIVE 07/01/20 13:45 Urine Methadone Screen NEGATIVE 07/01/20 13:45 Ur Barbiturates Screen NEGATIVE 07/01/20 13:45 Ur Phencyclidine Scrn NEGATIVE 07/01/20 13:45 Ur Amphetamines Screen NEGATIVE 07/01/20 13:45 U Benzodiazepines Scrn NEGATIVE 07/01/20 13:45 Urine Cocaine Screen NEGATIVE 07/01/20 13:45 U Marijuana (THC) Screen NEGATIVE 07/01/20 13:45 Blood Type O POSITIVE 07/01/20 16:12 Blood Type Confirm O POSITIVE 07/02/20 09:14 Antibody Screen POSITIVE 07/01/20 16:12 Antibody Identification Anti-E 07/01/20 16:12 Antigen Identification E Antigen - NEGATIVE 07/01/20 18:43 Crossmatch See Detail 07/01/20 18:43 Plan Health Concerns: iron rich foods Plan of Treatment: d/c home, f/up with [facility] in once week for incision check Time Spent: Less than 30 Minutes
[2020-07-04 15:52] VITALS: BP 127/80
== END 2020-07-04 16:45 | disposition home or self-care (01) | DRG 784 ==
LOC: LC 13:09 → LR 15:50 → 2S 20:53
PROVIDERS: ADMIT Student in an Organized Health Care Education/Training Program; ATTEND Student in an Organized Health Care Education/Training Program
PROC: 10D00Z1 Extraction of Products of Conception, Low, Open Approach (ICD-10-PCS; principal; 2020-07-01)
PROC: 0UL70CZ Occlusion of Bilateral Fallopian Tubes with Extraluminal Device, Open Approach (ICD-10-PCS; 2020-07-01)
PROC: 30233N1 Transfusion of Nonautologous Red Blood Cells into Peripheral Vein, Percutaneous Approach (ICD-10-PCS; 2020-07-02)
DX: O24.424 Gestational diabetes mellitus in childbirth, insulin controlled (principal); D62 Acute posthemorrhagic anemia; Z30.2 Encounter for sterilization; O34.211 Maternal care for low transverse scar from previous cesarean delivery; O99.613 Diseases of the digestive system complicating pregnancy, third trimester; K21.9 Gastro-esophageal reflux disease without esophagitis; O99.824 Streptococcus B carrier state complicating childbirth; O99.02 Anemia complicating childbirth; Z79.899 Other long term (current) drug therapy; Z34.83 Encounter for supervision of other normal pregnancy, third trimester; Z11.59 Encounter for screening for other viral diseases; Z3A.38 38 weeks gestation of pregnancy; Z37.0 Single live birth
CPT/HCPCS: 1961; 36415; 36430; 64486; 76942; 80307; 81005; 84112; 85025; 85027; 86592; 86850; 86870; 86900; 86901; 86902; 86920; 86922; 88307; 94760; 94799; C1765; J0131; J0690; J1170; J1885; J2250; J2405; J2540; J2590; J3010; J3490; J7050; J7060; J7120; P9016